=== PATIENT | male | born 1955 | race Caucasian/White ===

== ENCOUNTER 2017-11-24 20:08 | Observation (INO) | payer OTHER ==
[2017-11-24] MEDS ORDERED: Sodium Chloride 0.9% 1,000 ML IV SCH ×3 (20:30→23:26)
[2017-11-24] MEDS ORDERED: HYDROmorphone 1 MG/ML Syringe IVPUSH ONE ×2 (20:33→21:26)
[2017-11-24] MEDS ORDERED: Ondansetron 4 MG/2 ML SDV IVPUSH ONE (20:33)
[2017-11-24] MEDS ORDERED: Sodium Chloride 0.9% 10 ML Syringe FLUSH PRN (21:03)
[2017-11-24] MEDS ORDERED: Sodium Chloride 0.9% 80 ML IV SCH (21:15)
[2017-11-24] MEDS ORDERED: Iopamidol 612 MG/ML 150 ML Bottle IV SCH (21:15)
--- NOTE | 2017-11-24 22:37 | PCM.HP ---
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 Pain was so intense he had to have his , and pick him up. While in emergency room he had labs, abdomen pelvis CT and ultrasound of his testicles, CT scan shows a 3 mm stone in the left ureter Discussed with Dr. Bill Batista, and patient, will admit for pain control and rehydration. Onset of Symptoms: Reports: Sudden Duration of Symptoms: Reports: Hour(s):, Getting Worse, Waxing/Waning Location: Reports: Abdomen, Radiates to (left testicle) Quality: Reports: Sharp, Stabbing Severity: Severe Improves with: Reports: Medication Worsens with: Reports: None Context: Reports: Other (diverticulitis, chronic left testicle pain) Associated Symptoms: Reports: Loss of Appetite, Nausea/Vomiting - Related Data Allergies/Adverse Reactions: Allergies Allergy/AdvReac Type Severity Reaction Status Date / Time No Known Allergies Allergy Verified 11/24/17 20:50 Home Medications: Home Meds Ascorbic Acid [Vitamin C] 500 mg PO DAILY 09/10/15 [History] Fluticasone Propionate 2 spray NASBOTH DAILY 09/10/15 [History] Gluc HCl/Csa/Jhoan Hy/Hyalur Ac [Glucosamine Chondroitin] 1 each PO DAILY [History] Losartan [Cozaar] 100 mg PO DAILY 09/10/15 [History] Montelukast Sodium 10 mg PO DAILY 09/10/15 [History] Multivitamin [Multi-Day Vitamins] 1 each PO DAILY 09/10/15 [History] [place]-3/DHA/Epa/Fish Oil [[place]-3 Fish Oil 1,000 MG Sfgl] 2,000 mg PO DAILY [History] Vitamin B Complex [B Complex] 1 each PO DAILY 09/10/15 [History] Vitamin E 400 unit PO DAILY 09/10/15 [History] Ciprofloxacin HCl [Cipro] 11/24/17 [History] metroNIDAZOLE [Metronidazole] 11/24/17 [History] Past Medical History HEENT History: Reports: Impaired Vision Cardiovascular History: Reports: Hypertension Gastrointestinal History: Reports: Other (See Below) Other Gastrointestinal History: history of a fissure - Infectious Disease History Infectious Disease History: Reports: Chicken Pox, Other (See Below) Other Infectious Disease History: patient unsure whether or not he has had chicken pox - Past Surgical History HEENT Surgical History: Reports: Naso-Sinus Surgery Cardiovascular Surgical History: Reports: None GI Surgical History: Reports: Hernia, Inguinal, Other (See Below) Social & Family History - Family History Family Medical History: Noncontributory - Tobacco Use Smoking Status *Q: Never Smoker H&P Review of Systems - Review of Systems: Review Of Systems: See Below General: Reports: Other (acute abdominal pain) HEENT: Reports: No Symptoms Pulmonary: Reports: No Symptoms Cardiovascular: Reports: No Symptoms Gastrointestinal: Reports: Abdominal Pain, Nausea Genitourinary: Reports: Flank Pain Musculoskeletal: Reports: Back Pain Skin: Reports: No Symptoms, Other (remove a brown wood tick from left lower leg) Psychiatric: Reports: Anxiety Neurological: Reports: No Symptoms Hematologic/Lymphatic: Reports: No Symptoms Immunologic: Reports: No Symptoms Exam - Exam Exam: See Below - Vital Signs Vital Signs: Last Vital Signs Temp 37.1 C 11/24/17 20:55 Pulse 104 H 11/24/17 20:55 Resp 22 H 11/24/17 20:55 BP 120/78 11/24/17 20:55 Pulse Ox 100 11/24/17 20:55 Weight: 90.718 kg - Exam Quality Assessment: DVT Prophylaxis, Other (IV fluids) General: Alert, Oriented, Cooperative, Moderate Distress (intermittent, pain controlled with IV Dilaudid) HEENT: PERRLA, Hearing Intact, Mucosa Moist & [place], Nares Patent, Normal Nasal Septum, Posterior Pharynx Clear, Conjunctiva Clear, EOMI, EACs Clear, TMs Clear Neck: Supple, Trachea Midline, 2 Lungs: Clear to Auscultation, Normal Respiratory Effort GI/Abdominal Exam: Normal Bowel Sounds, Soft, No Organomegaly, No Distention, No Abnormal Bruit, No Mass, Pelvis Stable, Tender (generalized) (Male) Exam: Circumcised, Scrotum Tenderness (L), Testicular Tenderness (L) Rectal (Males) Exam: Deferred Back Exam: CVA Tenderness (L) Extremities: Normal Inspection, Normal Range of Motion, Non-Tender, No Pedal Edema, Normal Capillary Refill Skin: Warm, Dry, Intact Neurological: Cranial Nerves Intact, Reflexes Equal Bilateral Neuro Extensive - Mental Status: Alert, Oriented x3, Normal Mood/Affect, Normal Cognition Neuro Extensive - Motor, Sensory, Reflexes: CN II-XII Intact, Normal Gait, Normal Reflexes Psychiatric: Alert, Normal Affect, Normal Mood - Patient Data Lab Results Last 24 hrs: Laboratory Results - last 24 hr 11/24/17 11/24/17 11/24/17 Range/Units 20:21 20:21 20:37 WBC 7.1 (4.5-11.0) K/uL RBC 5.07 (4.30-5.90) M/uL Hgb 15.6 H (12.0-15.0) g/dL Hct 44.3 (40.0-54.0) % MCV 87 (80-98) fL MCH 31 (27-31) pg MCHC 35 (32-36) % Plt Count 224 (150-400) K/uL Neut % (Auto) 58 (36-66) % Lymph % (Auto) 26 (24-44) % [place] % (Auto) 11 H (2-6) % Eos % (Auto) 4 (2-4) % Baso % (Auto) 1 (0-1) % PT 10.7 (9.5-12.0) sec INR 1.00 (0.80-1.20) Sodium (140-148) mmol/L Potassium (3.6-5.2) mmol/L Chloride (100-108) mmol/L Carbon Dioxide (21-32) mmol/L Anion Gap (5.0-14.0) mmol/L BUN (7-18) mg/dL Creatinine (0.8-1.3) mg/dL Est Cr Clr Drug Dosing mL/min Estimated GFR (MDRD) (>60) Glucose (74-106) mg/dL Lactic Acid (0.4-2.0) mmol/L Calcium (8.5-10.1) mg/dL Magnesium (1.8-2.4) mg/dL Creatine Kinase 153 (39-308) U/L Amylase (25-115) U/L Lipase (73-393) U/L 11/24/17 11/24/17 Range/Units 20:37 20:37 WBC (4.5-11.0) K/uL RBC (4.30-5.90) M/uL Hgb (12.0-15.0) g/dL Hct (40.0-54.0) % MCV (80-98) fL MCH (27-31) pg MCHC (32-36) % Plt Count (150-400) K/uL Neut % (Auto) (36-66) % Lymph % (Auto) (24-44) % [place] % (Auto) (2-6) % Eos % (Auto) (2-4) % Baso % (Auto) (0-1) % PT (9.5-12.0) sec INR (0.80-1.20) Sodium 143 (140-148) mmol/L Potassium 3.8 (3.6-5.2) mmol/L Chloride 107 (100-108) mmol/L Carbon Dioxide 22 (21-32) mmol/L Anion Gap 13.9 (5.0-14.0) mmol/L BUN 19 H (7-18) mg/dL Creatinine 1.5 H (0.8-1.3) mg/dL Est Cr Clr Drug Dosing 47.26 mL/min Estimated GFR (MDRD) 48 L (>60) Glucose 135 H (74-106) mg/dL Lactic Acid 3.0 H (0.4-2.0) mmol/L Calcium 9.4 (8.5-10.1) mg/dL Magnesium 2.4 (1.8-2.4) mg/dL Creatine Kinase (39-308) U/L Amylase 65 (25-115) U/L Lipase 122 (73-393) U/L Result Diagrams: 11/24/17 20:21 11/24/17 20:37 - Problem List (1) Kidney stone on right side SNOMED Code(s): 34356192 ICD Code: N20.0 - CALCULUS OF KIDNEY Status: Acute Priority: High Current Visit: Yes (2) Diverticulitis SNOMED Code(s): 933082497 ICD Code: K57.92 - DVTRCLI OF INTEST, PART UNSP, W/O PERF OR ABSCESS W/O BLEED Status: Acute Priority: Low Current Visit: Yes Problem List Initiated/Reviewed/Updated: Yes Orders Last 24hrs: Active Orders 24 hr Category Date Time Status Patient Status Manage Transfer [TRANSFER] Routine ADT 11/24/17 22:23 Active Abdomen Pelvis w Cont [CT] Stat Exams 11/24/17 20:22 Taken Scrotal Duplex Ltd [US] Stat Exams 11/24/17 Ordered Scrotum and Contents [US] Stat Exams 11/24/17 20:34 Ordered Iopamidol [Isovue-300 (61%)] Med 11/24/17 21:15 Active 136 ml IV . DIRECTED Sodium Chloride 0.9% [Normal Saline] 1,000 ml Med 11/24/17 20:30 Active IV ASDIRECTED Sodium Chloride 0.9% [Normal Saline] 1,000 ml Med 11/24/17 21:30 Active IV ASDIRECTED Sodium Chloride 0.9% [Normal Saline] 80 ml Med 11/24/17 21:15 Active IV ASDIRECTED Sodium Chloride 0.9% [Saline Flush] Med 11/24/17 21:03 Active 10 ml FLUSH ASDIRECTED PRN Resuscitation Status Routine Resus Stat 11/24/17 22:25 Ordered Medication Orders Sodium Chloride (Normal Saline) 1,000 mls @ 500 mls/hr IV ASDIRECTED [facility] Last Admin: 11/24/17 20:57 Dose: 500 mls/hr Sodium Chloride (Normal Saline) 80 mls @ 3 mls/sec IV ASDIRECTED [facility] Last Admin: 11/24/17 21:20 Dose: 3 mls/sec Sodium Chloride (Normal Saline) 1,000 mls @ 999 mls/hr IV ASDIRECTED [facility] Iopamidol (Isovue-300 (61%)) 136 ml IV . DIRECTED [facility] Last Admin: 11/24/17 21:20 Dose: 136 ml Sodium Chloride (Saline Flush) 10 ml FLUSH ASDIRECTED PRN PRN Reason: Keep Vein Open Assessment/Plan Comment:: ASSESSMENT / PLAN -pt arrived with severe abdominal and left sided flank pain and extending into the left groin. He reports sudden onset of abdomen pain 2 hours prior to arrival in ER. He is feeling nauseated, dry heaves. severe back and low abdomen pain. labs done is ER , CBC, CMP, lactic acid; normal. Urine with micro; pending Imaging; CT abdomen - pelvis: impression 3 mm stone within the left mid ureter with mild left hydronephrosis and proximal hydroureter. no additional renal stone identified. ultrasound of left testicle, reports no torsion, good blood flow to each testes, equal shape and size. left testicle has a large hydrocele. past medical history -Diverticulosis without evidence for diverticulitis -chronic left testicle pain Plan -discussed with Dr.Vern Batista, advised admit and will re-assess in am -Admit Observation 2 North for further monitoring Left Kidney stone -Iv fluids Normal Saline at 125ml/hr -pain medication, Dilaudid QUOTATION CHECKER pump -Advise to notify nurses of any fever, chills, worsen pain or other symptoms -strain all urine -And a.m. labs: CBC, BMP Diverticulosis without evidence for diverticulitis -Septra DS one po bid -Flaygl 500 mg po bid Maintenance issues -Orders home meds: on hold -Nutrition: Regular diet -Arias catheter not indicated at this time -DVT:Lovenox 30mg subcut daily -GI Prophalaxis; Protonix 40mg daily CODE STATUS: Full Admission status: Admit to Observation -I expect this patient to stay less than 24 hours, not to exceed 96 hours for evaluation and management of this problem. Disposition: home with family Primary care provider: Dr. Bill Batista
--- NOTE | 2017-11-24 23:13 | EDM.PDOC ---
ED HPI GENERAL MEDICAL PROBLEM - General Chief Complaint: Abdominal Pain Stated Complaint: STOMACH/SIDE PAINS Time Seen by Provider: 11/24/17 20:18 Source of Information: Reports: Patient, Family () History Limitations: Reports: No Limitations - History of Present Illness INITIAL COMMENTS - FREE TEXT/NARRATIVE: -pt arrived with severe abdominal and left sided flank pain and extending into the left groin. He reports sudden onset of abdomen pain 2 hours prior to arrival in ER. He is feeling nauseated, dry heaves. severe back and low abdomen pain. labs done is ER , CBC, CMP, lactic acid; normal. Urine with micro; pending Imaging; CT abdomen - pelvis: impression 3 mm stone within the left mid ureter with mild left hydronephrosis and proximal hydroureter. no additional renal stone identified. ultrasound of left testicle, reports no torsion, good blood flow to each testes, equal shape and size. left testicle has a large hydrocele. past medical history -Diverticulosis without evidence for diverticulitis -chronic left testicle pain Onset: Sudden Duration: Hour(s):, Getting Worse, Waxing/Waning Location: Reports: Abdomen, Radiates to (left testicle) Quality: Reports: Sharp, Stabbing Severity: Severe Improves with: Reports: Medication Worsens with: Reports: None Associated Symptoms: Reports: Loss of Appetite, Nausea/Vomiting - Related Data Allergies Allergy/AdvReac Type Severity Reaction Status Date / Time No Known Allergies Allergy Verified 11/24/17 20:50 Home Meds: Home Meds Ascorbic Acid [Vitamin C] 500 mg PO DAILY 09/10/15 [History] Fluticasone Propionate 2 spray NASBOTH DAILY 09/10/15 [History] Gluc HCl/Csa/Jhoan Hy/Hyalur Ac [Glucosamine Chondroitin] 1 each PO DAILY [History] Losartan [Cozaar] 100 mg PO DAILY 09/10/15 [History] Montelukast Sodium 10 mg PO DAILY 09/10/15 [History] Multivitamin [Multi-Day Vitamins] 1 each PO DAILY 09/10/15 [History] [place]-3/DHA/Epa/Fish Oil [[place]-3 Fish Oil 1,000 MG Sfgl] 2,000 mg PO DAILY [History] Vitamin B Complex [B Complex] 1 each PO DAILY 09/10/15 [History] Vitamin E 400 unit PO DAILY 09/10/15 [History] Ciprofloxacin HCl [Cipro] 11/24/17 [History] metroNIDAZOLE [Metronidazole] 11/24/17 [History] Past Medical History HEENT History: Reports: Impaired Vision Cardiovascular History: Reports: Hypertension Gastrointestinal History: Reports: Other (See Below) Other Gastrointestinal History: history of a fissure - Infectious Disease History Infectious Disease History: Reports: Chicken Pox, Other (See Below) Other Infectious Disease History: patient unsure whether or not he has had chicken pox - Past Surgical History HEENT Surgical History: Reports: Naso-Sinus Surgery Cardiovascular Surgical History: Reports: None GI Surgical History: Reports: Hernia, Inguinal, Other (See Below) Social & Family History - Family History Family Medical History: Noncontributory - Tobacco Use Smoking Status *Q: Never Smoker - Living Situation & Occupation Living situation: Reports: Occupation: Employed ([employer], [place] with . also works for [employer]) ED ROS GENERAL - Review of Systems Review Of Systems: See Below Constitutional: Reports: Weakness, Decreased Appetite, Other (abdominal pain , sudden onset 2 hours prior to arrival in ER) HEENT: Reports: Glasses Respiratory: Reports: No Symptoms Cardiovascular: Reports: No Symptoms Endocrine: Reports: No Symptoms GI/Abdominal: Reports: Abdominal Pain, Vomiting (due to pain) : Reports: Flank Pain (left) Musculoskeletal: Reports: Back Pain Skin: Reports: Other (tick removed from left lower leg) Neurological: Reports: No Symptoms Psychiatric: Reports: Anxiety Hematologic/Lymphatic: Reports: No Symptoms Immunologic: Reports: No Symptoms ED EXAM, GI/ABD - Physical Exam Exam: See Below Exam Limited By: No Limitations General Appearance: Alert, WD/WN, Anxious, Moderate Distress Eyes: Bilateral: Normal Appearance Ears: Normal External Exam, Normal Canal, Hearing Grossly Normal, Normal TMs Nose: Normal Inspection, Normal Mucosa, No Blood Throat/Mouth: Normal Inspection, Normal Lips, Normal Teeth, Normal Gums, Normal Oropharynx, Normal Voice, No Airway Compromise Head: Atraumatic, Normocephalic Neck: Normal Inspection, Supple, Non-Tender, Full Range of Motion Respiratory/Chest: No Respiratory Distress, Lungs Clear, Normal Breath Sounds, No Accessory Muscle Use, Chest Non-Tender Cardiovascular: Regular Rate, Rhythm, No Murmur GI/Abdominal Exam: Normal Bowel Sounds, Soft, Tender (generalized abdominal pain ) (Male) Exam: Circumcised, Scrotum Tenderness (L), Testicular Tenderness (L) Rectal (Males) Exam: Deferred Back Exam: Normal Inspection, Full Range of Motion, CVA Tenderness (L) Extremities: Normal Inspection, Normal Range of Motion, Non-Tender, No Pedal Edema, Normal Capillary Refill, Other (brown wood tick removed from left lower leg) Neurological: Alert, Oriented, CN II-XII Intact, Normal Cognition, Normal Gait, No Motor/Sensory Deficits Psychiatric: Normal Affect, Normal Mood, Anxious Skin Exam: Warm, Dry, Intact, Normal Color, No Rash Lymphatic: No Adenopathy Course - Vital Signs Last Recorded V/S: Last Vital Signs Temp 37.1 C 11/24/17 20:55 Pulse 104 H 11/24/17 20:55 Resp 22 H 11/24/17 20:55 BP 120/78 11/24/17 20:55 Pulse Ox 100 11/24/17 20:55 - Orders/Labs/Meds Orders: Active Orders 24 hr Category Date Time Status Abdomen Pelvis w Cont [CT] Stat Exams 11/24/17 20:22 Taken Scrotal Duplex Ltd [US] Stat Exams 11/24/17 22:40 Taken Scrotum and Contents [US] Stat Exams 11/24/17 20:34 Taken Iopamidol [Isovue-300 (61%)] Med 11/24/17 21:15 Active 136 ml IV . DIRECTED Sodium Chloride 0.9% [Normal Saline] 1,000 ml Med 11/24/17 20:30 Active IV ASDIRECTED Sodium Chloride 0.9% [Normal Saline] 1,000 ml Med 11/24/17 21:30 Active IV ASDIRECTED Sodium Chloride 0.9% [Normal Saline] 80 ml Med 11/24/17 21:15 Active IV ASDIRECTED Sodium Chloride 0.9% [Saline Flush] Med 11/24/17 21:03 Active 10 ml FLUSH ASDIRECTED PRN Medication Orders Sodium Chloride (Normal Saline) 1,000 mls @ 500 mls/hr IV ASDIRECTED [facility] Last Admin: 11/24/17 20:57 Dose: 500 mls/hr Sodium Chloride (Normal Saline) 80 mls @ 3 mls/sec IV ASDIRECTED [facility] Last Admin: 11/24/17 21:20 Dose: 3 mls/sec Sodium Chloride (Normal Saline) 1,000 mls @ 999 mls/hr IV ASDIRECTED [facility] Iopamidol (Isovue-300 (61%)) 136 ml IV . DIRECTED [facility] Last Admin: 11/24/17 21:20 Dose: 136 ml Sodium Chloride (Saline Flush) 10 ml FLUSH ASDIRECTED PRN PRN Reason: Keep Vein Open Labs: Laboratory Tests 11/24/17 11/24/17 11/24/17 Range/Units 20:21 20:21 20:37 WBC 7.1 (4.5-11.0) K/uL RBC 5.07 (4.30-5.90) M/uL Hgb 15.6 H (12.0-15.0) g/dL Hct 44.3 (40.0-54.0) % MCV 87 (80-98) fL MCH 31 (27-31) pg MCHC 35 (32-36) % Plt Count 224 (150-400) K/uL Neut % (Auto) 58 (36-66) % Lymph % (Auto) 26 (24-44) % [place] % (Auto) 11 H (2-6) % Eos % (Auto) 4 (2-4) % Baso % (Auto) 1 (0-1) % PT 10.7 (9.5-12.0) sec INR 1.00 (0.80-1.20) Sodium (140-148) mmol/L Potassium (3.6-5.2) mmol/L Chloride (100-108) mmol/L Carbon Dioxide (21-32) mmol/L Anion Gap (5.0-14.0) mmol/L BUN (7-18) mg/dL Creatinine (0.8-1.3) mg/dL Est Cr Clr Drug Dosing mL/min Estimated GFR (MDRD) (>60) Glucose (74-106) mg/dL Lactic Acid (0.4-2.0) mmol/L Calcium (8.5-10.1) mg/dL Magnesium (1.8-2.4) mg/dL Creatine Kinase 153 (39-308) U/L Amylase (25-115) U/L Lipase (73-393) U/L 11/24/17 11/24/17 Range/Units 20:37 20:37 WBC (4.5-11.0) K/uL RBC (4.30-5.90) M/uL Hgb (12.0-15.0) g/dL Hct (40.0-54.0) % MCV (80-98) fL MCH (27-31) pg MCHC (32-36) % Plt Count (150-400) K/uL Neut % (Auto) (36-66) % Lymph % (Auto) (24-44) % [place] % (Auto) (2-6) % Eos % (Auto) (2-4) % Baso % (Auto) (0-1) % PT (9.5-12.0) sec INR (0.80-1.20) Sodium 143 (140-148) mmol/L Potassium 3.8 (3.6-5.2) mmol/L Chloride 107 (100-108) mmol/L Carbon Dioxide 22 (21-32) mmol/L Anion Gap 13.9 (5.0-14.0) mmol/L BUN 19 H (7-18) mg/dL Creatinine 1.5 H (0.8-1.3) mg/dL Est Cr Clr Drug Dosing 47.26 mL/min Estimated GFR (MDRD) 48 L (>60) Glucose 135 H (74-106) mg/dL Lactic Acid 3.0 H (0.4-2.0) mmol/L Calcium 9.4 (8.5-10.1) mg/dL Magnesium 2.4 (1.8-2.4) mg/dL Creatine Kinase (39-308) U/L Amylase 65 (25-115) U/L Lipase 122 (73-393) U/L Meds: Medications Generic Name Dose Route Start Last Admin Trade Name Freq PRN Reason Stop Dose Admin Sodium Chloride 1,000 mls @ 500 mls/hr 11/24/17 20:30 11/24/17 20:57 Normal Saline IV 500 mls/hr ASDIRECTED NATALEE Administration Sodium Chloride 80 mls @ 3 mls/sec 11/24/17 21:15 11/24/17 21:20 Normal Saline IV 3 mls/sec ASDIRECTED NATALEE Administration Sodium Chloride 1,000 mls @ 999 mls/hr 11/24/17 21:30 Normal Saline IV ASDIRECTED [facility] Iopamidol 136 ml 11/24/17 21:15 11/24/17 21:20 Isovue-300 (61%) IV 136 ml . DIRECTED NATALEE Administration Sodium Chloride 10 ml 11/24/17 21:03 Saline Flush FLUSH ASDIRECTED PRN Keep Vein Open Discontinued Medications Generic Name Dose Route Start Last Admin Trade Name Arpitq PRN Reason Stop Dose Admin Hydromorphone HCl 1 mg 11/24/17 20:33 11/24/17 20:57 Dilaudid IVPUSH 11/24/17 20:34 1 mg ONETIME ONE Administration Hydromorphone HCl 1 mg 11/24/17 21:26 11/24/17 22:21 Dilaudid IVPUSH 11/24/17 21:27 1 mg ONETIME ONE Administration Ondansetron HCl 4 mg 11/24/17 20:33 11/24/17 20:57 Zofran IVPUSH 11/24/17 20:34 4 mg ONETIME ONE Administration - Re-Assessments/Exams Free Text/Narrative Re-Assessment/Exam: -pt arrived with severe abdominal and left sided flank pain and extending into the left groin. He reports sudden onset of abdomen pain 2 hours prior to arrival in ER. He is feeling nauseated, dry heaves. severe back and low abdomen pain. labs done is ER , CBC, CMP, lactic acid; normal. Urine with micro; pending Imaging; CT abdomen - pelvis: impression 3 mm stone within the left mid ureter with mild left hydronephrosis and proximal hydroureter. no additional renal stone identified. ultrasound of left testicle, reports no torsion, good blood flow to each testes, equal shape and size. left testicle has a large hydrocele. past medical history -Diverticulosis without evidence for diverticulitis -chronic left testicle pain Dr. Bill Batista consult, advise admission for pain control and IV fluids. will re-assess in am Discussed with Mr. and Mrs. Reyestner, agree with plan of care. Departure - Departure Time of Disposition: 22:30 Disposition: Refer to Observation Condition: Good Clinical Impression: Kidney stone on left side, Diverticulitis - Discharge Information - Problem List & Annotations (1) Kidney stone on right side SNOMED Code(s): 28547225 Code(s): N20.0 - CALCULUS OF KIDNEY Status: Acute Priority: High Current Visit: Yes (2) Diverticulitis SNOMED Code(s): 405491950 Code(s): K57.92 - DVTRCLI OF INTEST, PART UNSP, W/O PERF OR ABSCESS W/O BLEED Status: Acute Priority: Low Current Visit: Yes - My Orders Last 24 Hours: My Active Orders 11/24/17 20:22 Abdomen Pelvis w Cont [CT] Stat 11/24/17 20:30 Sodium Chloride 0.9% [Normal Saline] 1,000 ml IV ASDIRECTED 11/24/17 20:34 Scrotum and Contents [US] Stat 11/24/17 21:03 Sodium Chloride 0.9% [Saline Flush] 10 ml FLUSH ASDIRECTED PRN 11/24/17 21:15 Iopamidol [Isovue-300 (61%)] 136 ml IV . DIRECTED Sodium Chloride 0.9% [Normal Saline] 80 ml IV ASDIRECTED 11/24/17 21:30 Sodium Chloride 0.9% [Normal Saline] 1,000 ml IV ASDIRECTED 11/24/17 22:40 Scrotal Duplex Ltd [US] Stat - Assessment/Plan Last 24 Hours: My Active Orders 11/24/17 20:22 Abdomen Pelvis w Cont [CT] Stat 11/24/17 20:30 Sodium Chloride 0.9% [Normal Saline] 1,000 ml IV ASDIRECTED 11/24/17 20:34 Scrotum and Contents [US] Stat 11/24/17 21:03 Sodium Chloride 0.9% [Saline Flush] 10 ml FLUSH ASDIRECTED PRN 11/24/17 21:15 Iopamidol [Isovue-300 (61%)] 136 ml IV . DIRECTED Sodium Chloride 0.9% [Normal Saline] 80 ml IV ASDIRECTED 11/24/17 21:30 Sodium Chloride 0.9% [Normal Saline] 1,000 ml IV ASDIRECTED 11/24/17 22:40 Scrotal Duplex Ltd [US] Stat
[2017-11-24] MEDS ORDERED: metroNIDAZOLE 250 MG Tab PO SCH (23:26)
[2017-11-24] MEDS ORDERED: Naloxone 0.4 MG/ML SDV IVPUSH PRN (23:26)
[2017-11-24] MEDS ORDERED: Sulfamethoxazole/Trimethoprim 800-160 MG Tab PO SCH (23:26)
[2017-11-24] MEDS ORDERED: LORazepam 2 MG/ML SDV IV PRN (23:26)
[2017-11-24] MEDS ORDERED: HYDROmorphone/Normal Saline 15 MG/30 ML PCA IV PRN (23:26)
[2017-11-24] MEDS ORDERED: Docusate Sodium 100 MG Cap PO PRN (23:26)
[2017-11-24] MEDS ORDERED: Bisacodyl 5 MG Tab PO PRN (23:26)
[2017-11-24] MEDS ORDERED: Ondansetron 4 MG/2 ML SDV IV PRN (23:26)
[2017-11-24] MEDS ORDERED: Tamsulosin 0.4 MG Cap.ER PO ONE (23:26)
[2017-11-24] MEDS ORDERED: Acetaminophen 325 MG Tab PO PRN (23:26)
[2017-11-24] MEDS ORDERED: Ondansetron 4 MG Tab.DIS PO PRN (23:26)
[2017-11-24] MEDS ORDERED: Albuterol 0.083% 2.5 MG/3 ML Neb Soln NEB PRN (23:26)
[2017-11-24] MEDS ORDERED: Enoxaparin 40 MG/0.4 ML Syringe SUBCUT SCH (23:45)
[2017-11-25] MEDS: Ibuprofen 600 MG Tab PO SCH ×2 (00:01→06:34)
[2017-11-25 07:55] VITALS: BP 136/78
--- NOTE | 2017-11-25 08:49 | PCM.HP ---
H&P History of Present Illness - General Date of Service: 11/24/17 Admit Problem/Dx: Admission Diagnosis/Problem Admission Diagnosis/Problem Kidney stone Source of Information: Patient History Limitations: Reports: No Limitations - History of Present Illness Initial Comments - Free Text/Narative: Praful had a sudden onset of pain while strapping down a load of hay. He was in the office 5 days before For abdominal pain cause but we assume and was acute diverticulitis as he has had diverticulitis problems in the past. He was improving until he had a sudden of pain very severe on the left side where he had the diverticulitis pain. It was so severe he could not drive and came into the emergency room. CT of the abdomen did show that he had a 3 mm calcified kidney stone on the left. His pain is very severe at 10/10 and is admitted for pain control. Onset of Symptoms: Reports: Sudden Quality: Reports: Dull, Sharp, Stabbing - Related Data Allergies/Adverse Reactions: Allergies Allergy/AdvReac Type Severity Reaction Status Date / Time No Known Allergies Allergy Verified 11/24/17 20:50 Home Medications: Home Meds Ascorbic Acid [Vitamin C] 500 mg PO DAILY 09/10/15 [History] Fluticasone Propionate 2 spray NASBOTH DAILY 09/10/15 [History] Gluc HCl/Csa/Jhoan Hy/Hyalur Ac [Glucosamine Chondroitin] 1 each PO DAILY [History] Losartan [Cozaar] 100 mg PO DAILY 09/10/15 [History] Montelukast Sodium 10 mg PO DAILY 09/10/15 [History] Multivitamin [Multi-Day Vitamins] 1 each PO DAILY 09/10/15 [History] [place]-3/DHA/Epa/Fish Oil [[place]-3 Fish Oil 1,000 MG Sfgl] 2,000 mg PO DAILY [History] Vitamin B Complex [B Complex] 1 each PO DAILY 09/10/15 [History] Vitamin E 400 unit PO DAILY 09/10/15 [History] Ciprofloxacin HCl [Cipro] 11/24/17 [History] metroNIDAZOLE [Metronidazole] 11/24/17 [History] Tamsulosin HCl [Flomax] 0.4 mg PO BID 15 Days #30 cap.er.24h 11/25/17 [Rx] metroNIDAZOLE 500 mg PO BID tablet 11/25/17 [Rx] Past Medical History HEENT History: Reports: Impaired Vision Cardiovascular History: Reports: Hypertension Gastrointestinal History: Reports: Diverticulosis, Other (See Below) Other Gastrointestinal History: history of a fissure Genitourinary History: Reports: Renal Calculus - Infectious Disease History Infectious Disease History: Reports: Chicken Pox, Other (See Below) Other Infectious Disease History: patient unsure whether or not he has had chicken pox - Past Surgical History HEENT Surgical History: Reports: Naso-Sinus Surgery Cardiovascular Surgical History: Reports: None GI Surgical History: Reports: Hernia, Inguinal, Other (See Below) Social & Family History - Family History Family Medical History: Noncontributory Oncologic: Reports: Leukemia - Tobacco Use Smoking Status *Q: Never Smoker Second Hand Smoke Exposure: No - Caffeine Use Caffeine Use: Reports: Coffee, Soda - Recreational Drug Use Recreational Drug Use: No - Living Situation & Occupation Living situation: Reports: Occupation: Employed ([employer], lives on [place] near [place] with . also works for [employer]) H&P Review of Systems - Review of Systems: Review Of Systems: See Below General: Reports: No Symptoms HEENT: Reports: No Symptoms Pulmonary: Reports: No Symptoms Cardiovascular: Reports: No Symptoms Gastrointestinal: Reports: Abdominal Pain Genitourinary: Reports: No Symptoms Musculoskeletal: Reports: No Symptoms Psychiatric: Reports: No Symptoms Neurological: Reports: No Symptoms Exam - Exam Exam: See Below - Vital Signs Vital Signs: Last Vital Signs Temp 96.6 F 11/25/17 07:53 Pulse 74 11/25/17 07:53 Resp 16 11/25/17 07:53 BP 136/78 11/25/17 07:53 Pulse Ox 98 11/25/17 08:08 Weight: 194 lb 9.6 oz - Exam General: Alert, Oriented, 4 HEENT: PERRLA, Hearing Intact, Mucosa Moist & [place], Nares Patent, Normal Nasal Septum, Posterior Pharynx Clear, Conjunctiva Clear, EOMI, EACs Clear, TMs Clear Neck: Supple, Trachea Midline, 2 Lungs: Clear to Auscultation, Normal Respiratory Effort Cardiovascular: Regular Rate, Regular Rhythm GI/Abdominal Exam: Distended, Guarding, Tender, Other (There is pain throughout the abdomen but much worse in the lower left quad and decreased bowel sounds evident.) Extremities: Normal Inspection, Normal Range of Motion, Non-Tender, No Pedal Edema, Normal Capillary Refill Peripheral Pulses: 1+: Radial (L), Radial (R) Skin: Warm, Dry, Intact DTR: 1+: Bicep (L), Bicep (R) - Patient Data Lab Results Last 24 hrs: Laboratory Results - last 24 hr 11/24/17 11/24/17 11/24/17 Range/Units 20:21 20:21 20:37 WBC 7.1 (4.5-11.0) K/uL RBC 5.07 (4.30-5.90) M/uL Hgb 15.6 H (12.0-15.0) g/dL Hct 44.3 (40.0-54.0) % MCV 87 (80-98) fL MCH 31 (27-31) pg MCHC 35 (32-36) % Plt Count 224 (150-400) K/uL Neut % (Auto) 58 (36-66) % Lymph % (Auto) 26 (24-44) % [place] % (Auto) 11 H (2-6) % Eos % (Auto) 4 (2-4) % Baso % (Auto) 1 (0-1) % PT 10.7 (9.5-12.0) sec INR 1.00 (0.80-1.20) Sodium (140-148) mmol/L Potassium (3.6-5.2) mmol/L Chloride (100-108) mmol/L Carbon Dioxide (21-32) mmol/L Anion Gap (5.0-14.0) mmol/L BUN (7-18) mg/dL Creatinine (0.8-1.3) mg/dL Est Cr Clr Drug Dosing mL/min Estimated GFR (MDRD) (>60) Glucose (74-106) mg/dL Lactic Acid (0.4-2.0) mmol/L Calcium (8.5-10.1) mg/dL Magnesium (1.8-2.4) mg/dL Creatine Kinase 153 (39-308) U/L Amylase (25-115) U/L Lipase (73-393) U/L Urine Color Urine Appearance Urine pH (4.5-8.0) Ur Specific [place] (1.008-1.030) Urine Protein (NEGATIVE) mg/dL Urine Glucose (UA) (NEGATIVE) mg/dL Urine Ketones (NEGATIVE) mg/dL Urine Occult Blood (NEGATIVE) Urine Nitrite (NEGAITVE) Urine Bilirubin (NEGATIVE) Urine Urobilinogen (NORMAL) mg/dL Ur Leukocyte Esterase (NEGATIVE) Urine RBC (0-5) Urine WBC (0-5) Ur Epithelial Cells Amorphous Sediment Urine Bacteria Urine Mucus 11/24/17 11/24/17 11/25/17 Range/Units 20:37 20:37 05:44 WBC 8.6 (4.5-11.0) K/uL RBC 4.46 (4.30-5.90) M/uL Hgb 13.4 D (12.0-15.0) g/dL Hct 40.2 (40.0-54.0) % MCV 90 (80-98) fL MCH 30 (27-31) pg MCHC 33 (32-36) % Plt Count 232 (150-400) K/uL Neut % (Auto) 74 H (36-66) % Lymph % (Auto) 15 L (24-44) % [place] % (Auto) 10 H (2-6) % Eos % (Auto) 1 L (2-4) % Baso % (Auto) 0 (0-1) % PT (9.5-12.0) sec INR (0.80-1.20) Sodium 143 (140-148) mmol/L Potassium 3.8 (3.6-5.2) mmol/L Chloride 107 (100-108) mmol/L Carbon Dioxide 22 (21-32) mmol/L Anion Gap 13.9 (5.0-14.0) mmol/L BUN 19 H (7-18) mg/dL Creatinine 1.5 H (0.8-1.3) mg/dL Est Cr Clr Drug Dosing 47.26 mL/min Estimated GFR (MDRD) 48 L (>60) Glucose 135 H (74-106) mg/dL Lactic Acid 3.0 H (0.4-2.0) mmol/L Calcium 9.4 (8.5-10.1) mg/dL Magnesium 2.4 (1.8-2.4) mg/dL Creatine Kinase (39-308) U/L Amylase 65 (25-115) U/L Lipase 122 (73-393) U/L Urine Color Urine Appearance Urine pH (4.5-8.0) Ur Specific [place] (1.008-1.030) Urine Protein (NEGATIVE) mg/dL Urine Glucose (UA) (NEGATIVE) mg/dL Urine Ketones (NEGATIVE) mg/dL Urine Occult Blood (NEGATIVE) Urine Nitrite (NEGAITVE) Urine Bilirubin (NEGATIVE) Urine Urobilinogen (NORMAL) mg/dL Ur Leukocyte Esterase (NEGATIVE) Urine RBC (0-5) Urine WBC (0-5) Ur Epithelial Cells Amorphous Sediment Urine Bacteria Urine Mucus 11/25/17 11/25/17 Range/Units 05:44 07:51 WBC (4.5-11.0) K/uL RBC (4.30-5.90) M/uL Hgb (12.0-15.0) g/dL Hct (40.0-54.0) % MCV (80-98) fL MCH (27-31) pg MCHC (32-36) % Plt Count (150-400) K/uL Neut % (Auto) (36-66) % Lymph % (Auto) (24-44) % [place] % (Auto) (2-6) % Eos % (Auto) (2-4) % Baso % (Auto) (0-1) % PT (9.5-12.0) sec INR (0.80-1.20) Sodium 141 (140-148) mmol/L Potassium 4.1 (3.6-5.2) mmol/L Chloride 110 H (100-108) mmol/L Carbon Dioxide 26 (21-32) mmol/L Anion Gap 9.1 (5.0-14.0) mmol/L BUN 16 (7-18) mg/dL Creatinine 1.2 (0.8-1.3) mg/dL Est Cr Clr Drug Dosing 59.07 mL/min Estimated GFR (MDRD) > 60 (>60) Glucose 113 H (74-106) mg/dL Lactic Acid (0.4-2.0) mmol/L Calcium 7.9 L D (8.5-10.1) mg/dL Magnesium (1.8-2.4) mg/dL Creatine Kinase (39-308) U/L Amylase (25-115) U/L Lipase (73-393) U/L Urine Color Yellow Urine Appearance Clear Urine pH 6.0 (4.5-8.0) Ur Specific [place] 1.015 (1.008-1.030) Urine Protein Negative (NEGATIVE) mg/dL Urine Glucose (UA) Normal (NEGATIVE) mg/dL Urine Ketones Negative (NEGATIVE) mg/dL Urine Occult Blood Moderate (NEGATIVE) Urine Nitrite Negative (NEGAITVE) Urine Bilirubin Negative (NEGATIVE) Urine Urobilinogen Normal (NORMAL) mg/dL Ur Leukocyte Esterase Negative (NEGATIVE) Urine RBC 30-40 H (0-5) Urine WBC 0-5 (0-5) Ur Epithelial Cells Rare Amorphous Sediment Not seen Urine Bacteria Not seen Urine Mucus Not seen Result Diagrams: 11/25/17 05:44 11/25/17 05:44 Problem List Initiated/Reviewed/Updated: Yes Orders Last 24hrs: Active Orders 24 hr Category Date Time Status Patient Status [ADT] Routine ADT 11/24/17 23:26 Active Communication Order [RC] STAT Care 11/24/17 23:26 Active Intake and Output [RC] QSHIFT Care 11/24/17 23:26 Active May Shower [RC] ASDIRECTED Care 11/24/17 23:26 Active Notify Provider Vital Signs [RC] ASDIRECTED Care 11/24/17 23:26 Active Notify Provider [RC] PRN Care 11/24/17 23:26 Active Oxygen Therapy [RC] PRN Care 11/24/17 23:26 Active DAY CARE SUPERVISOR Record [RC] PER UNIT ROUTINE Care 11/24/17 23:26 Active Pulse Oximetry [RC] CONTINUOUS Care 11/24/17 23:26 Active Up ad Sofiya [RC] ASDIRECTED Care 11/24/17 23:26 Active VTE/DVT Education [RC] Per Unit Routine Care 11/24/17 23:26 Active Vital Signs [RC] Q4H Care 11/24/17 23:26 Active Regular Diet [DIET] Diet 11/24/17 Breakfast Active Abdomen Pelvis w Cont [CT] Stat Exams 11/24/17 20:22 Taken Scrotal Duplex Ltd [US] Stat Exams 11/24/17 22:40 Taken Scrotum and Contents [US] Stat Exams 11/24/17 20:34 Taken UA W/MICROSCOPIC [URIN] AM Lab 11/25/17 07:51 Ordered Acetaminophen [Tylenol] Med 11/24/17 23:26 Active 650 mg PO Q4H PRN Albuterol [Proventil Neb Soln] Med 11/24/17 23:26 Active 2.5 mg NEB Q4H PRN Bisacodyl [Dulcolax] Med 11/24/17 23:26 Active 5 mg PO DAILY PRN Docusate Sodium [Colace] Med 11/24/17 23:26 Active 100 mg PO BID PRN Enoxaparin [Lovenox] Med 11/24/17 23:45 Active 40 mg SUBCUT Q24H Fluticasone Propionate [Flonase] Med 11/25/17 09:00 Active 0 gm NASBOTH DAILY HYDROmorphone/Normal Saline [Dilaudid DAY CARE SUPERVISOR 15 MG in NS Med 11/24/17 23:26 Active 30 ML] See Protocol IV ASDIRECTED PRN Ibuprofen [Motrin] Med 11/25/17 12:00 Active 600 mg PO Q6H LORazepam [Ativan] Med 11/24/17 23:26 Active 1 mg IV Q6H PRN Losartan [Cozaar] Med 11/25/17 09:00 Active 100 mg PO DAILY Melatonin Med 11/25/17 21:00 Active 6 mg PO BEDTIME Naloxone [Narcan] Med 11/24/17 23:26 Active 0.4 mg IVPUSH Q2M PRN Ondansetron [Zofran ODT] Med 11/24/17 23:26 Active 4 mg PO Q6H PRN Ondansetron [Zofran] Med 11/24/17 23:26 Active 4 mg IV Q4H PRN Sodium Chloride 0.9% [Normal Saline] 1,000 ml Med 11/24/17 23:26 Active IV ASDIRECTED Sodium Chloride 0.9% [Saline Flush] Med 11/24/17 21:03 Active 10 ml FLUSH ASDIRECTED PRN Sulfamethoxazole/Trimethoprim [Septra DS] Med 11/24/17 23:26 Active 1 tab PO BID metroNIDAZOLE Med 11/24/17 23:26 Active 500 mg PO BID Medication Discontinuation Instructions [OM.PC] Stat Oth 11/24/17 23:26 Ordered Resuscitation Status Routine Resus Stat 11/24/17 22:25 Ordered Medication Orders Acetaminophen (Tylenol) 650 mg PO Q4H PRN PRN Reason: Pain (Mild 1-3)/fever Albuterol (Proventil Neb Soln) 2.5 mg NEB Q4H PRN PRN Reason: Shortness Of Breath/wheezing Bisacodyl (Dulcolax) 5 mg PO DAILY PRN PRN Reason: Constipation Docusate Sodium (Colace) 100 mg PO BID PRN PRN Reason: Constipation Enoxaparin Sodium (Lovenox) 40 mg SUBCUT Q24H [facility] Last Admin: 11/25/17 00:02 Dose: 40 mg Fluticasone Propionate (Flonase) 0 gm NASBOTH DAILY [facility] Hydromorphone HCl (Dilaudid Treasury Manager 15 Mg In Ns 30 Ml) 0 mg IV ASDIRECTED PRN; Protocol PRN Reason: Pain Last Admin: 11/24/17 23:56 Dose: 15 mg Sodium Chloride (Normal Saline) 1,000 mls @ 125 mls/hr IV ASDIRECTED [facility] Last Admin: 11/25/17 00:00 Dose: 125 mls/hr Ibuprofen (Motrin) 600 mg PO Q6H [facility] Lorazepam (Ativan) 1 mg IV Q6H PRN PRN Reason: Nausea/Vomiting Losartan Potassium (Cozaar) 100 mg PO DAILY [facility] Melatonin (Melatonin) 6 mg PO BEDTIME [facility] Metronidazole (Metronidazole) 500 mg PO BID [facility] Last Admin: 11/25/17 00:01 Dose: 500 mg Naloxone HCl (Narcan) 0.4 mg IVPUSH Q2M PRN PRN Reason: Respiratory Distress Ondansetron HCl (Zofran Odt) 4 mg PO Q6H PRN PRN Reason: Nausea able to take PO Ondansetron HCl (Zofran) 4 mg IV Q4H PRN PRN Reason: Nausea/Vomiting Sodium Chloride (Saline Flush) 10 ml FLUSH ASDIRECTED PRN PRN Reason: Keep Vein Open Trimethoprim/Sulfamethoxazole (Septra Ds) 1 tab PO BID [facility] Last Admin: 11/25/17 00:01 Dose: 1 tab Assessment/Plan Comment:: ASSESSMENT / PLAN #1. Left kidney stone. We will give fluids and start Flomax to improve passage and control pain with narcotic DAY CARE SUPERVISOR pump. #2. Diverticulitis I feel that he still may have had diverticulitis problem but this is stable presently. The creatinine is 1.5 with a BUN 47. There is a moderate amount of blood
--- NOTE | 2017-11-25 08:53 | PCM.DCSUM1 ---
Discharge Summary - Hospital Course Diagnosis: Stroke: No - Discharge Data Discharge Date: 11/25/17 Discharge Disposition: Home, Self-Care 01 Condition: Good - Patient Summary/Data Hospital Course: Guilherme came in through the emergency room and was admitted. CT of the abdomen was done which showed a kidney stone on the left. The pain was controlled by medication and he is being discharged home in stable condition and will follow in the office for further evaluation of the kidney stone - Patient Instructions Diet: Heart Healthy Diet - Discharge Plan Prescriptions/Med Rec: Tamsulosin HCl [Flomax] 0.4 mg PO BID 15 Days #30 cap.er.24h Home Medications: Home Meds Ascorbic Acid [Vitamin C] 500 mg PO DAILY 09/10/15 [History] Fluticasone Propionate 2 spray NASBOTH DAILY 09/10/15 [History] Gluc HCl/Csa/Jhoan Hy/Hyalur Ac [Glucosamine Chondroitin] 1 each PO DAILY [History] Losartan [Cozaar] 100 mg PO DAILY 09/10/15 [History] Montelukast Sodium 10 mg PO DAILY 09/10/15 [History] Multivitamin [Multi-Day Vitamins] 1 each PO DAILY 09/10/15 [History] [place]-3/DHA/Epa/Fish Oil [[place]-3 Fish Oil 1,000 MG Sfgl] 2,000 mg PO DAILY [History] Vitamin B Complex [B Complex] 1 each PO DAILY 09/10/15 [History] Vitamin E 400 unit PO DAILY 09/10/15 [History] Ciprofloxacin HCl [Cipro] 11/24/17 [History] metroNIDAZOLE [Metronidazole] 11/24/17 [History] Tamsulosin HCl [Flomax] 0.4 mg PO BID 15 Days #30 cap.er.24h 11/25/17 [Rx] metroNIDAZOLE 500 mg PO BID tablet 11/25/17 [Rx] Forms: ED Department Discharge Referrals: Bill Batista Sr, MD [Primary Care Provider] - - Discharge Summary/Plan Comment Discharge Summary/Plan Comment: ASSESSMENT / PLAN #1. Kidney stone. This is asymptomatic at the present time. It is a very small stone and should pass by itself. I will discharge him home on Flomax and this should help pass the stone. I will follow up in the office in 2 weeks or sooner if needed. #2. Diverticulitis: We will continue with the present treatment plan. - General Info Date of Service: 11/25/17 - Review of Systems General: Reports: No Symptoms HEENT: Reports: No Symptoms Pulmonary: Reports: No Symptoms Cardiovascular: Reports: No Symptoms Gastrointestinal: Reports: No Symptoms Genitourinary: Reports: No Symptoms Musculoskeletal: Reports: No Symptoms Skin: Reports: No Symptoms Neurological: Reports: No Symptoms Psychiatric: Reports: No Symptoms - Patient Data Vitals - Most Recent: Last Vital Signs Temp 96.6 F 11/25/17 07:53 Pulse 74 11/25/17 07:53 Resp 16 11/25/17 07:53 BP 136/78 11/25/17 07:53 Pulse Ox 98 11/25/17 08:08 Weight - Most Recent: 194 lb 9.6 oz I&O - Last 24 hours: Intake & Output 11/24/17 11/25/17 11/25/17 22:59 06:59 14:59 Intake Total 1776 120 Output Total 400 200 Balance 1376 -80 Lab Results - Last 24 hrs: Laboratory Results - last 24 hr 11/24/17 11/24/17 11/24/17 Range/Units 20:21 20:21 20:37 WBC 7.1 (4.5-11.0) K/uL RBC 5.07 (4.30-5.90) M/uL Hgb 15.6 H (12.0-15.0) g/dL Hct 44.3 (40.0-54.0) % MCV 87 (80-98) fL MCH 31 (27-31) pg MCHC 35 (32-36) % Plt Count 224 (150-400) K/uL Neut % (Auto) 58 (36-66) % Lymph % (Auto) 26 (24-44) % [place] % (Auto) 11 H (2-6) % Eos % (Auto) 4 (2-4) % Baso % (Auto) 1 (0-1) % PT 10.7 (9.5-12.0) sec INR 1.00 (0.80-1.20) Sodium (140-148) mmol/L Potassium (3.6-5.2) mmol/L Chloride (100-108) mmol/L Carbon Dioxide (21-32) mmol/L Anion Gap (5.0-14.0) mmol/L BUN (7-18) mg/dL Creatinine (0.8-1.3) mg/dL Est Cr Clr Drug Dosing mL/min Estimated GFR (MDRD) (>60) Glucose (74-106) mg/dL Lactic Acid (0.4-2.0) mmol/L Calcium (8.5-10.1) mg/dL Magnesium (1.8-2.4) mg/dL Creatine Kinase 153 (39-308) U/L Amylase (25-115) U/L Lipase (73-393) U/L Urine Color Urine Appearance Urine pH (4.5-8.0) Ur Specific [place] (1.008-1.030) Urine Protein (NEGATIVE) mg/dL Urine Glucose (UA) (NEGATIVE) mg/dL Urine Ketones (NEGATIVE) mg/dL Urine Occult Blood (NEGATIVE) Urine Nitrite (NEGAITVE) Urine Bilirubin (NEGATIVE) Urine Urobilinogen (NORMAL) mg/dL Ur Leukocyte Esterase (NEGATIVE) Urine RBC (0-5) Urine WBC (0-5) Ur Epithelial Cells Amorphous Sediment Urine Bacteria Urine Mucus 11/24/17 11/24/17 11/25/17 Range/Units 20:37 20:37 05:44 WBC 8.6 (4.5-11.0) K/uL RBC 4.46 (4.30-5.90) M/uL Hgb 13.4 D (12.0-15.0) g/dL Hct 40.2 (40.0-54.0) % MCV 90 (80-98) fL MCH 30 (27-31) pg MCHC 33 (32-36) % Plt Count 232 (150-400) K/uL Neut % (Auto) 74 H (36-66) % Lymph % (Auto) 15 L (24-44) % [place] % (Auto) 10 H (2-6) % Eos % (Auto) 1 L (2-4) % Baso % (Auto) 0 (0-1) % PT (9.5-12.0) sec INR (0.80-1.20) Sodium 143 (140-148) mmol/L Potassium 3.8 (3.6-5.2) mmol/L Chloride 107 (100-108) mmol/L Carbon Dioxide 22 (21-32) mmol/L Anion Gap 13.9 (5.0-14.0) mmol/L BUN 19 H (7-18) mg/dL Creatinine 1.5 H (0.8-1.3) mg/dL Est Cr Clr Drug Dosing 47.26 mL/min Estimated GFR (MDRD) 48 L (>60) Glucose 135 H (74-106) mg/dL Lactic Acid 3.0 H (0.4-2.0) mmol/L Calcium 9.4 (8.5-10.1) mg/dL Magnesium 2.4 (1.8-2.4) mg/dL Creatine Kinase (39-308) U/L Amylase 65 (25-115) U/L Lipase 122 (73-393) U/L Urine Color Urine Appearance Urine pH (4.5-8.0) Ur Specific [place] (1.008-1.030) Urine Protein (NEGATIVE) mg/dL Urine Glucose (UA) (NEGATIVE) mg/dL Urine Ketones (NEGATIVE) mg/dL Urine Occult Blood (NEGATIVE) Urine Nitrite (NEGAITVE) Urine Bilirubin (NEGATIVE) Urine Urobilinogen (NORMAL) mg/dL Ur Leukocyte Esterase (NEGATIVE) Urine RBC (0-5) Urine WBC (0-5) Ur Epithelial Cells Amorphous Sediment Urine Bacteria Urine Mucus 11/25/17 11/25/17 Range/Units 05:44 07:51 WBC (4.5-11.0) K/uL RBC (4.30-5.90) M/uL Hgb (12.0-15.0) g/dL Hct (40.0-54.0) % MCV (80-98) fL MCH (27-31) pg MCHC (32-36) % Plt Count (150-400) K/uL Neut % (Auto) (36-66) % Lymph % (Auto) (24-44) % [place] % (Auto) (2-6) % Eos % (Auto) (2-4) % Baso % (Auto) (0-1) % PT (9.5-12.0) sec INR (0.80-1.20) Sodium 141 (140-148) mmol/L Potassium 4.1 (3.6-5.2) mmol/L Chloride 110 H (100-108) mmol/L Carbon Dioxide 26 (21-32) mmol/L Anion Gap 9.1 (5.0-14.0) mmol/L BUN 16 (7-18) mg/dL Creatinine 1.2 (0.8-1.3) mg/dL Est Cr Clr Drug Dosing 59.07 mL/min Estimated GFR (MDRD) > 60 (>60) Glucose 113 H (74-106) mg/dL Lactic Acid (0.4-2.0) mmol/L Calcium 7.9 L D (8.5-10.1) mg/dL Magnesium (1.8-2.4) mg/dL Creatine Kinase (39-308) U/L Amylase (25-115) U/L Lipase (73-393) U/L Urine Color Yellow Urine Appearance Clear Urine pH 6.0 (4.5-8.0) Ur Specific [place] 1.015 (1.008-1.030) Urine Protein Negative (NEGATIVE) mg/dL Urine Glucose (UA) Normal (NEGATIVE) mg/dL Urine Ketones Negative (NEGATIVE) mg/dL Urine Occult Blood Moderate (NEGATIVE) Urine Nitrite Negative (NEGAITVE) Urine Bilirubin Negative (NEGATIVE) Urine Urobilinogen Normal (NORMAL) mg/dL Ur Leukocyte Esterase Negative (NEGATIVE) Urine RBC 30-40 H (0-5) Urine WBC 0-5 (0-5) Ur Epithelial Cells Rare Amorphous Sediment Not seen Urine Bacteria Not seen Urine Mucus Not seen Med Orders - Current: Current Medications Acetaminophen (Tylenol) 650 mg PO Q4H PRN PRN Reason: Pain (Mild 1-3)/fever Albuterol (Proventil Neb Soln) 2.5 mg NEB Q4H PRN PRN Reason: Shortness Of Breath/wheezing Bisacodyl (Dulcolax) 5 mg PO DAILY PRN PRN Reason: Constipation Docusate Sodium (Colace) 100 mg PO BID PRN PRN Reason: Constipation Enoxaparin Sodium (Lovenox) 40 mg SUBCUT Q24H [facility] Last Admin: 11/25/17 00:02 Dose: 40 mg Fluticasone Propionate (Flonase) 0 gm NASBOTH DAILY [facility] Hydromorphone HCl (Dilaudid Financial Planner 15 Mg In Ns 30 Ml) 0 mg IV ASDIRECTED PRN; Protocol PRN Reason: Pain Last Admin: 11/24/17 23:56 Dose: 15 mg Sodium Chloride (Normal Saline) 1,000 mls @ 125 mls/hr IV ASDIRECTED [facility] Last Admin: 11/25/17 00:00 Dose: 125 mls/hr Ibuprofen (Motrin) 600 mg PO Q6H [facility] Lorazepam (Ativan) 1 mg IV Q6H PRN PRN Reason: Nausea/Vomiting Losartan Potassium (Cozaar) 100 mg PO DAILY [facility] Melatonin (Melatonin) 6 mg PO BEDTIME [facility] Metronidazole (Metronidazole) 500 mg PO BID [facility] Last Admin: 11/25/17 00:01 Dose: 500 mg Naloxone HCl (Narcan) 0.4 mg IVPUSH Q2M PRN PRN Reason: Respiratory Distress Ondansetron HCl (Zofran Odt) 4 mg PO Q6H PRN PRN Reason: Nausea able to take PO Ondansetron HCl (Zofran) 4 mg IV Q4H PRN PRN Reason: Nausea/Vomiting Sodium Chloride (Saline Flush) 10 ml FLUSH ASDIRECTED PRN PRN Reason: Keep Vein Open Trimethoprim/Sulfamethoxazole (Septra Ds) 1 tab PO BID [facility] Last Admin: 11/25/17 00:01 Dose: 1 tab Discontinued Medications Hydromorphone HCl (Dilaudid) 1 mg IVPUSH ONETIME ONE Stop: 11/24/17 20:34 Last Admin: 11/24/17 20:57 Dose: 1 mg Hydromorphone HCl (Dilaudid) 1 mg IVPUSH ONETIME ONE Stop: 11/24/17 21:27 Last Admin: 11/24/17 22:21 Dose: 1 mg Sodium Chloride (Normal Saline) 1,000 mls @ 500 mls/hr IV ASDIRECTED [facility] Last Admin: 11/24/17 20:57 Dose: 500 mls/hr Sodium Chloride (Normal Saline) 80 mls @ 3 mls/sec IV ASDIRECTED [facility] Last Admin: 11/24/17 21:20 Dose: 3 mls/sec Sodium Chloride (Normal Saline) 1,000 mls @ 999 mls/hr IV ASDIRECTED [facility] Ibuprofen (Motrin) 600 mg PO Q6H [facility] Last Admin: 11/25/17 06:34 Dose: Not Given Iopamidol (Isovue-300 (61%)) 136 ml IV . DIRECTED [facility] Last Admin: 11/24/17 21:20 Dose: 136 ml Ondansetron HCl (Zofran) 4 mg IVPUSH ONETIME ONE Stop: 11/24/17 20:34 Last Admin: 11/24/17 20:57 Dose: 4 mg Tamsulosin HCl (Flomax) 0.4 mg PO ONETIME ONE Stop: 11/24/17 23:27 Last Admin: 11/25/17 00:01 Dose: 0.4 mg - Exam General: Reports: Alert, Oriented HEENT: Reports: Pupils Equal, Pupils Reactive, EOMI, Mucous Membr. Moist/[place] Neck: Reports: Supple Lungs: Reports: Clear to Auscultation, Normal Respiratory Effort Cardiovascular: Reports: Regular Rate, Regular Rhythm GI/Abdominal Exam: Normal Bowel Sounds, Soft, Non-Tender, No Organomegaly, No Distention, No Abnormal Bruit, No Mass, Pelvis Stable Back Exam: Reports: Normal Inspection, Full Range of Motion Extremities: Normal Inspection, Normal Range of Motion, Non-Tender, No Pedal Edema, Normal Capillary Refill Skin: Reports: Warm, Dry, Intact Wound/Incisions: Reports: Healing Well Neurological: Reports: No New Focal Deficit Psy/Mental Status: Reports: Alert, Normal Affect, Normal Mood
[2017-11-25] MEDS ORDERED: Fluticasone Propionate Nasal Spray 16 GM Bottle NASBOTH SCH (09:00)
[2017-11-25] MEDS ORDERED: Losartan 50 MG Tab PO SCH (09:00)
--- NOTE | 2017-11-25 09:07 | US ---
See scrotal ultrasound
[2017-11-25] MEDS ORDERED: Ibuprofen 600 MG Tab PO SCH (12:00)
[2017-11-25] MEDS ORDERED: Melatonin 3 MG Tab PO SCH (21:00)
--- NOTE | 2017-11-29 09:22 | US ---
Scrotal Duplex Ltd CLINICAL HISTORY: Acute lower abdominal pain FINDINGS: Doppler spectra shows normal flow to both testes. The right testicle measures 4.5 x 1.8 x 3 .2 cm cm. The right epididymis has a normal appearance. The left testicle measures 4.2 x 1.7 x 3.5 cm cm. The left epididymis has a normal appearance. There are no masses or abnormal fluid collections. There is a small left sided varicocele. There is no evidence of hernia. IMPRESSION: No mass or inflammatory change Small left sided varicocele
== END 2017-11-25 10:10 | disposition home or self-care (01) ==
LOC: JP.ED 20:08 → JP.MS 22:23
PROVIDERS: ADMIT Internal Medicine; ATTEND Internal Medicine
DX: N20.0 Calculus of kidney (principal); K57.92 Diverticulitis of intestine, part unspecified, without perforation or abscess without bleeding; I10 Essential (primary) hypertension; G89.29 Other chronic pain; N50.812 Left testicular pain; Z79.51 Long term (current) use of inhaled steroids; Z79.2 Long term (current) use of antibiotics; Z79.899 Other long term (current) drug therapy
CPT/HCPCS: 36415; 74177; 76870; 80048; 81001; 82150; 82550; 83605; 83690; 83735; 85025; 85610; 93976; 96361; 96374; 96375; 96376; 99285; A9270; J1170; J1650; J2405; J7030

== ENCOUNTER 2020-07-28 07:52 | Day surgery (SDC) | payer OTHER ==
[2020-07-28] MEDS ORDERED: Sodium Chloride 0.9% 1,000 ML IV SCH (08:30)
[2020-07-28] MEDS ORDERED: Propofol 200 MG/20 ML SDV ONE (09:03)
[2020-07-28] MEDS ORDERED: Midazolam 1 MG/ML 2 ML SDV ONE (09:03)
[2020-07-28] MEDS ORDERED: fentaNYL 100 MCG/2 ML SDV ONE (09:03)
[2020-07-28 11:52] VITALS: BP 105/77; PULSE 77
--- NOTE | 2020-07-29 10:58 | OR ---
DATE OF PROCEDURE: 07/28/2020 SURGEON: Willi Frederick MD PROCEDURE: Colonoscopy. FINDINGS: 1. Ascending colon polyp, approximately 5 mm, completely removed using cold biopsy forceps. 2. Diverticulosis, mild, mostly concentrated in the sigmoid colon but throughout entire colon, without evidence of diverticulitis or bleeding. COMPLICATION: None. GLASS BULB SILVERER: None. RISKS: Risks, benefits, alternatives, and limitations including, but not limited to infection, bleeding, false positives, false negatives, and other risks not listed here. PROCEDURE IN DETAIL: The patient was placed in left lateral decubitus position. Digital rectal exam was performed without abnormality. Scope was introduced and advanced atraumatically to the ileocecal valve. A photo was taken of this. Scope was brought back to the ascending, transverse, descending colon, and retroflexed. No evidence of old or new blood. The aforementioned polyp was then identified and completely removed. Diverticulosis was described as above. No abnormalities on retroflexion. The patient tolerated the procedure well. The prep was acceptable with approximately 90% of the luminal surface except for some solid and liquid stool remaining. Suction irrigation techniques were used to remove this. Greater than 8 minutes was spent removing the scope. Willi Frederick MD /[id number]
== END 2020-07-28 11:52 | disposition home or self-care (01) ==
LOC: JP.SDS 07:52
PROVIDERS: ATTEND Surgery
DX: Z12.11 Encounter for screening for malignant neoplasm of colon (principal); D12.2 Benign neoplasm of ascending colon; K57.30 Diverticulosis of large intestine without perforation or abscess without bleeding; I10 Essential (primary) hypertension; E78.5 Hyperlipidemia, unspecified; E66.9 Obesity, unspecified; Z68.33 Body mass index [BMI] 33.0-33.9, adult
CPT/HCPCS: J2250; J2704; J3010; J7030